=== PATIENT | female | born 1975 | race American Indian/Alaskan Native ===

== ENCOUNTER 2016-09-23 10:40 | Outpatient (CLI) | payer BC ==
--- NOTE | 2016-09-23 14:18 | Ultrasound Report ---
THYROID ULTRASOUND:09/23/16 10:40:00 CLINICAL: Goiter. FINDINGS: High-resolution ultrasound demonstrated a borderline large thyroid with a normal homogeneous echo pattern. The right lobe measures 4.3 x 1.5 x 1.6cm. The left lobe measures 4.5 x 1.5 x 1.8. The isthmus measures 3.0 mm AP thickness. No thyroid nodule or mass. IMPRESSION: A borderline-enlarged thyroid with no mass or nodularity.
== END 2016-09-23 10:41 | disposition home or self-care (01) ==
LOC: SPVWC 10:40
PROVIDERS: ATTEND Family Medicine Adult Medicine
DX: E04.9 Nontoxic goiter, unspecified (principal); E05.90 Thyrotoxicosis, unspecified without thyrotoxic crisis or storm
CPT/HCPCS: 76536